=== PATIENT | male | born 1990 | race Caucasian/White ===

== ENCOUNTER 2017-04-04 07:19 | Day surgery (SDC) | payer BC ==
[~2017-04-04] VITALS: Ht 193 cm; Wt 90.7 kg
--- NOTE | ~2017-04-04 | OP ---
PATIENT NAME: MARIBEL CORRAL MEDICAL RECORD: [id number] :89 LOCATION:D.OPS ADMISSION DATE: SURGEON: FLAQUITA ESTES MD DATE OF OPERATION: 04/04/2017 PREOPERATIVE DIAGNOSES: 1. Left cheek mass. 2. Right posterior neck mass. 3. Attention deficit hyperactivity disorder. 4. Major depressive disorder. POSTOPERATIVE DIAGNOSES: 1. Left cheek mass. 2. Right posterior neck mass. 3. Attention deficit hyperactivity disorder. 4. Major depressive disorder. PROCEDURE: 1. Excision of less than 1 cm posterior neck mass. 2. Excisional of less than 0.5 cm left cheek mass. SURGEON: Flaquita Estes MD REPORT OF PROCEDURE: The patient's neck and left cheek were prepped and draped in sterile fashion. A skin incision was made overlying the left cheek and a firm nodule was removed. This was left 0.5 cm in greatest diameter. I did not see any sign of a cystic cavity. The lesion was more of the consistency of a small rock or stone. The subcutaneous tissues were irrigated out and then reapproximated with a single interrupted 5-0 Monocryl. The neck was approached and a transverse incision was made overlying the mass. Again, a firm calcified mass more resembling a rock was removed. Again, no cystic component was visualized. There was some firmness to the underlying fatty tissue, so this was removed. At this point, we had a nice clean base with no sign of any masses, lesions or cystic tissue. The wound was irrigated out with normal saline and then closed with interrupted 5-0 Monocryl times 2. A total of 5 mL of Marcaine plain was infused into the tissues of the 2 wounds and the wound was dressed appropriately. COMPLICATIONS: None. CONDITION: Stable. ANESTHESIA: General endotracheal and local. BLOOD LOSS: Minimal. 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
[~2017-04-04 07:19] MED LIST: ADDERALL XR 3030 MG PO; LEXAPRO20 MG PO; MULTI-DAY VITAM1 TAB PO; PROBIOTIC1 EAC1 PO; WELLBUTRIN XL150 M1 PO
[2017-04-04 08:08] VITALS: BP 102/74; Ht 193 cm; Wt 90.7 kg
[2017-04-04] MEDS ORDERED: HYDROCODON-ACE1 EAC7 PO (10:46)
--- NOTE | 2017-04-04 11:07 | NUR ---
OPA IN AIRWAY ON ADMIT
--- NOTE | 2017-04-04 12:51 | NUR ---
1240 DISCHARGE INSTRUCTIONS COMPLETE. PRESCRIPTION FOR NORCO GIVEN. PT REPORTS NO PAIN/N/V AT THIS TIME. ESCORTED OUT BY VOLUNTEER.
== END 2017-04-04 12:40 | disposition home or self-care (01) ==
LOC: D.OPS 07:19 → D.PAN 11:30 → D.OPS 12:40
DX: R22.1 Localized swelling, mass and lump, neck (principal); D17.9 Benign lipomatous neoplasm, unspecified; F90.9 Attention-deficit hyperactivity disorder, unspecified type; F32.9 Major depressive disorder, single episode, unspecified; Z01.812 Encounter for preprocedural laboratory examination